=== PATIENT | female | born 1965 | race Caucasian/White ===

== ENCOUNTER 2016-12-20 06:04 | Inpatient (IN) | payer MEDICAID ==
[2016-12-20] MEDS ORDERED: 0.9 % SODIUM CHLORIDE 1,000 ML BAG IV ONE ×2 (06:24→07:14)
[2016-12-20] MEDS ORDERED: ONDANSETRON HCL IV 4 MG/2 ML VIAL IVP ONE (06:24)
[2016-12-20] MEDS ORDERED: IPRATROPIUM/ALBUTEROL (0.5MG/3MG) NEB INH ONE (06:25)
--- NOTE | 2016-12-20 06:26 | Emergency Department Record ---
History of Present Illness <Geremias Cabrales - Last Filed: 12/20/16 08:02> - General Source: Patient Mode of Arrival: Ambulatory Limitations: No limitations - History of Present Illness Initial comments: 51 yo female presents with two weeks of not feeling well. Her symptoms started with coughing. The could has been productive with clear sputum. No fevers but she does feel short of breath. NO chest pain. She is not a smoker. The last 4 days she developed a significant amount of diarrhea. She has associated nausea without vomiting. She has upper abdominal pain. No blood in the diarrhea. No dysuria but she states her urine is foul smelling. No recent antibiotics. She has history of prior . PCP is Dr Flores in [place]. She has a history of HTN, single kidney, hyperthyroid MD complaint: Diarrhea, Nausea, Vomiting, Other (Cough) -: Days(s) (4 days of diarrhea) Description of Vomiting: Watery Description of Diarrhea: Water Location: Epigastric Radiation: None Severity: Moderate Quality: Cramping Consistency: Constant Improves with: None Worsens with: Eating Associated Symptoms: Cough, Loss of appetite, Malaise, Nausea/vomiting <JASMEET NATH - Last Filed: 12/22/16 07:13> - General Chief complaint: Cough Stated complaint: COUGH/SOB/DIARRHEA Time Seen by Provider: 12/20/16 06:19 - Related Data Home Medications Medication Instructions Recorded Confirmed Last Taken Amitriptyline HCl 25 mg PO DAILY 12/20/16 12/20/16 Unknown Latanoprost 0.005% Opth Marika 1 drop AFFEYE BID 12/20/16 12/20/16 Unknown [Xalatan] Meloxicam 15 mg PO DAILY 12/20/16 12/20/16 Unknown Previous Rx's Medication Instructions Recorded Acetaminophen [Tylenol 500Mg Tab] 500 mg PO Q6H PRN 12/21/16 Albuterol Sulfate [Proair Hfa] 1 - 2 puff IH .EVERY 4-6 HOURS PRN 12/21/16 #1 inhaler Azithromycin 250 mg PO DAILY #3 tablet 12/21/16 Thyroid,Pork [[place] Thyroid] 45 mg PO DAILY #45 tab 12/21/16 Allergies Allergy/AdvReac Type Severity Reaction Status Date / Time No Known Drug Allergies Allergy Verified 03/09/15 13:58 Review of Systems Constitutional: Reports: Malaise, Weakness. Denies: Chills, Fever Eyes: Denies: Eye discharge, Eye pain, Photophobia ENT: Reports: Throat pain. Denies: Congestion Respiratory: Reports: Cough, Dyspnea. Denies: Hemoptysis Cardiovascular: Denies: Chest pain, Palpitations, Syncope Endocrine: Reports: Fatigue. Denies: Polydipsia, Polyuria Gastrointestinal: Reports: Abdominal pain, Diarrhea, Nausea Genitourinary: Denies: Dysuria, Urgency Musculoskeletal: Denies: Arthralgia, Back pain, Myalgia, Neck pain Skin: Denies: Bruising, Change in color, Rash Neurological: Denies: Confusion, Headache, Weakness Psychiatric: Denies: Anxiety Hematological/Lymphatic: Denies: Blood Clots, Easy bleeding, Easy bruising, Swollen glands <JASMEET NATH - Last Filed: 12/22/16 07:13> Past Medical History - SOCIAL HISTORY Smoking Status: Never smoker - RESPIRATORY Hx Respiratory Disorders: No - CARDIOVASCULAR Hx Cardio Disorders: Yes Hx Hypertension: Yes - NEURO Hx Neuro Disorders: No - GI Hx GI Disorders: No - Hx Genitourinary Disorders: Yes Hx Kidney Stones: Yes Hx Renal Disease: Yes (Pt states that "i only haveone kidney") Hx UTI: Yes - ENDOCRINE Hx Endocrine Disorders: Yes Hx Thyroid Disease: Yes (Hypothyroid) - MUSCULOSKELETAL Hx Musculoskeletal Disorders: No - PSYCH Hx Psych Problems: Yes Hx Anxiety: Yes Hx Behavior Problems: Yes (Bipolar) Hx Depression: Yes - HEMATOLOGY/ONCOLOGY Hx Hematology/Oncology Disorders: No <JASMEET NATH - Last Filed: 12/22/16 07:13> Family Medical History Hx Anxiety: Mother Hx Cancer: Father Hx Dementia: Mother Hx Depression: Mother Hx Diabetes: Mother Hx Heart Disease: Mother Hx HTN: Mother Hx Resp Disorders: Father Hx Seizures: Father Hx Stroke: Mother <JASMEET NATH - Last Filed: 12/22/16 07:13> Physical Exam - General General Appearance: Alert, Oriented x3, Cooperative, No acute distress Limitations: No limitations - Head Head exam: Atraumatic, Normocephalic, Normal inspection - Eye Eye exam: Normal appearance, PERRL. negative: Conjunctival injection, Periorbital swelling, Scleral icterus - ENT ENT exam: Normal exam, Mucous membranes dry, Normal orophraynx Ear exam: Normal external inspection Nasal Exam: Normal inspection Mouth exam: Normal external inspection - Neck Neck exam: Normal inspection. negative: Lymphadenopathy - Respiratory Respiratory exam: Decreased breath sounds, Rhonchi, Wheezes. negative: Normal lung sounds bilaterally, Chest wall tenderness, Prolonged expiratory, Respiratory distress - Cardiovascular Cardiovascular Exam: Normal rhythm, Normal heart sounds, Tachycardia. negative : Regular rate Peripheral Pulses: 2+: Radial (R), Radial (L) - GI/Abdominal GI/Abdominal exam: Soft, Tenderness (mildly tender in the epigastric area). negative: Distended, Guarding, Rebound, Rigid - Rectal Rectal exam: Deferred - exam: Deferred - Extremities Extremities exam: Normal inspection, Full ROM, Normal capillary refill. negative: Tenderness - Back Back exam: Reports: Normal inspection, Full ROM. Denies: CVA tenderness (R), CVA tenderness (L), Muscle spasm, Rash noted, Tenderness - Neurological Neurological exam: Alert, Normal gait, Oriented X3 - Psychiatric Psychiatric exam: Normal affect, Normal mood - Skin Skin exam: Dry, Intact, Normal color, Warm <JASMEET NATH - Last Filed: 12/22/16 07:13> Course Vital Signs 12/20/16 12/20/16 06:10 06:28 Temperature 97.8 F Pulse Rate 112 H Pulse Rate [ 134 H Pulse Ox Probe] Respiratory 26 H 16 Rate Blood Pressure 124/55 [Left Arm] Pulse Ox 94 L - Reevaluation(s) Reevaluation #3: The patient is doing better at this time and is resting comfortably. On exam her lungs do have improved aeration with no wheezes presently. 12/20/16 07:45 Reevaluation #4: The patient is doing better but her HR does jump to 120 with any movement or coughing. I did explain to her that it does appear she most likely does have a LLL infiltrate on xray. She also is significantly dehydrated with an elevated BUN and CR and a low HCO3. Due to those facts I did recommend hospital admission and the patient agreed. I then did contact Domonique (PATIENT ACCOUNT REPRESENTATIVE) and she did accept the admission for Dr. Streeter. 12/20/16 08:02 <Geremias Cabrales - Last Filed: 12/20/16 08:02> Vital Signs 12/20/16 06:10 Temperature 97.8 F Pulse Rate [ 134 H Pulse Ox Probe] Respiratory 26 H Rate Blood Pressure 124/55 [Left Arm] Pulse Ox 94 L - Reevaluation(s) Reevaluation #1: The CXR was reviewed Prelim read is atelectasis vs small infiltrate in the left base 12/20/16 06:52 Reevaluation #2: CBC reviewed. WBC 18.5 CMP with CR of 1.1 and HCO3 of 17. GFR is 55 12/20/16 06:54 <JASMEET NATH - Last Filed: 12/22/16 07:13> Medical Decision Making - Data Complexity MDM Data: Labs Ordered and/or Reviewed - Lab Data Result diagrams: 12/20/16 06:20 12/20/16 06:20 Lab Results 12/20/16 12/20/16 12/20/16 Range/Units 06:20 06:20 06:35 WBC 18.5 H (4.2-12.2) K/uL RBC 5.42 H (3.80-5.40) M/uL Hgb 16.0 (11.6-16.0) gm/dl Hct 48.0 H (35.0-47.0) % MCV 88.6 (81-97) fl MCH 29.5 (27-33) pg MCHC 33.3 (32-36) g/dl RDW 13.6 (11.5-14.5) % Plt Count 529 H (130-400) K/uL MPV 10.2 (7.4-10.4) fl Neutrophils % 62.0 (47-80) % Eosinophils % Not Reportable Basophils % Not Reportable Lymphocytes 23.0 (16-45) % Monocytes 13.0 H (0-9) % Platelet Estimate Normal (NORMAL) RBC Morphology Normal Eosinophil Count 2.0 (0-6) % Sodium 136 (136-145) mmol/L Potassium 3.9 (3.4-4.5) mmol/L Chloride 105 (98-107) mmol/L Carbon Dioxide 17.0 L (22-29) mmol/L Anion Gap 14.0 (7-16) BUN 59.2 H (12.6-42.6) mg/dL Creatinine 1.1 H (0.5-0.9) mg/dL Estimated GFR 55 mL/min Random Glucose 151 H (74-109) mg/dL Calcium 8.6 (8.6-10.0) mg/dL Total Bilirubin 0.30 (0.2-1.0) mg/dL AST 21 (10.0-35.0) U/L ALT 25 (<33) U/L Alkaline Phosphatase 75 (35-104) U/L Total Protein 7.0 (6.6-8.7) g/dL Albumin 3.6 L (4.0-5.0) g/dL Globulin 3.4 (1.4-4.8) gm/dL Albumin/Globulin Ratio 1.1 (1.1-1.8) Lipase 14 (13-60) U/L Urine Color Urine Appearance Urine pH (5.0-8.0) Ur Specific [place] (1.002-1.030) Urine Protein (NEGATIVE) Urine Glucose (UA) (NEGATIVE) Urine Ketones (NEGATIVE) Urine Blood (NEGATIVE) Urine Nitrite (NEGATIVE) Urine Bilirubin (NEGATIVE) Urine Urobilinogen (0.20 - 1.00) E.U./dL Ur Leukocyte Esterase (NEGATIVE) Influenza Type A Ag Negative (NEGATIVE) Influenza Type B Ag Negative (NEGATIVE) 12/20/16 Range/Units 06:55 WBC (4.2-12.2) K/uL RBC (3.80-5.40) M/uL Hgb (11.6-16.0) gm/dl Hct (35.0-47.0) % MCV (81-97) fl MCH (27-33) pg MCHC (32-36) g/dl RDW (11.5-14.5) % Plt Count (130-400) K/uL MPV (7.4-10.4) fl Neutrophils % (47-80) % Eosinophils % Basophils % Lymphocytes (16-45) % Monocytes (0-9) % Platelet Estimate (NORMAL) RBC Morphology Eosinophil Count (0-6) % Sodium (136-145) mmol/L Potassium (3.4-4.5) mmol/L Chloride (98-107) mmol/L Carbon Dioxide (22-29) mmol/L Anion Gap (7-16) BUN (12.6-42.6) mg/dL Creatinine (0.5-0.9) mg/dL Estimated GFR mL/min Random Glucose (74-109) mg/dL Calcium (8.6-10.0) mg/dL Total Bilirubin (0.2-1.0) mg/dL AST (10.0-35.0) U/L ALT (<33) U/L Alkaline Phosphatase (35-104) U/L Total Protein (6.6-8.7) g/dL Albumin (4.0-5.0) g/dL Globulin (1.4-4.8) gm/dL Albumin/Globulin Ratio (1.1-1.8) Lipase (13-60) U/L Urine Color Yellow Urine Appearance Clear Urine pH 6.0 (5.0-8.0) Ur Specific [place] >= 1.030 (1.002-1.030) Urine Protein 30 mg/dl H (NEGATIVE) Urine Glucose (UA) Negative (NEGATIVE) Urine Ketones Negative (NEGATIVE) Urine Blood Negative (NEGATIVE) Urine Nitrite Negative (NEGATIVE) Urine Bilirubin Negative (NEGATIVE) Urine Urobilinogen 0.2 (0.20 - 1.00) E.U./dL Ur Leukocyte Esterase Negative (NEGATIVE) Influenza Type A Ag (NEGATIVE) Influenza Type B Ag (NEGATIVE) <Geremias Cabrales - Last Filed: 12/20/16 08:02> - Lab Data Result diagrams: 12/21/16 06:19 12/21/16 06:19 <JASMEET NATH - Last Filed: 12/22/16 07:13> Disposition Disposition: Admit Decision to Admit: Admit from ER Decision to Admit Date: 12/20/16 Decision to Admit Time: 08:05 Accepting Physician: Syl Time Discussed w/Accepting Physician: 08:05 Time of Disposition: 08:05 <Geremias Cabrales - Last Filed: 12/20/16 08:02> <JASMEET NATH - Last Filed: 12/22/16 07:13> Clinical Impression: Pneumonia Qualifiers: Pneumonia type: due to unspecified organism Laterality: left Lung location: unspecified part of lung Qualified Code(s): J18.9 - Pneumonia, unspecified organism Disposition: Still a Patient at [facility] Condition: (2) Stable Quality - Blood Pressure Screening Does Patient Have Any of the Following: No Blood Pressure Classification: Normal BP Reading Systolic Measurement: 114 Diastolic Measurement: 74 Screening for High Blood Pressure: < Normal BP, F/U Not Required > [G8783] <Geremias Cabrales - Last Filed: 12/20/16 08:02> - Quality Measures Quality Measures: N/A - Blood Pressure Screening Does Patient Have Any of the Following: No Blood Pressure Classification: Pre-Hypertensive BP Reading Systolic Measurement: 120 Diastolic Measurement: 71 Screening for High Blood Pressure: < Pre-Hypertensive BP, F/U Documented > [ G8950] Pre-Hypertensive Follow-up Interventions: Referral to alternative/primary care provider. <JASMEET NATH - Last Filed: 12/22/16 07:13>
[2016-12-20 06:33] LABS: MEAN CELL VOLUME 88.6 fl (81-97); MEAN CORPUSCULAR HEMOGLOBIN 29.5 pg (27-33); MEAN CORPUSCULAR HGB CONC 33.3 g/dl (32-36); MEAN PLATELET VOLUME 10.2 fl (7.4-10.4); PLATELET COUNT 529 K/uL (130-400); RED BLOOD COUNT 5.42 M/uL (3.80-5.40); RED CELL DISTRIBUTION WIDTH 13.6 % (11.5-14.5); WHITE BLOOD COUNT W/O DIFF 18.5 K/uL (4.2-12.2)
[2016-12-20 06:46] LABS: PLATELET ESTIMATE NORMAL (NORMAL)
[2016-12-20 06:50] LABS: ALB/GLOB RATIO 1.1 (1.1-1.8); ALBUMIN 3.6 g/dL (4.0-5.0); BILIRUBIN,TOTAL 0.3 mg/dL (0.2-1.0); BLOOD UREA NITROGEN 59.2 mg/dL (12.6-42.6); CREATININE 1.1 mg/dL (0.5-0.9)
[2016-12-20 06:52] LABS: INFLUENZA A NEGATIVE (NEGATIVE); INFLUENZA B NEGATIVE (NEGATIVE)
[2016-12-20 07:00] LABS: URINE APPEARANCE CLEAR; URINE BILIRUBIN NEGATIVE (NEGATIVE); URINE BLOOD NEGATIVE (NEGATIVE); URINE COLOR YELLOW; URINE GLUCOSE (UA) NEGATIVE (NEGATIVE); URINE KETONE NEGATIVE (NEGATIVE); URINE LEUKOCYTE ESTERASE NEGATIVE (NEGATIVE); URINE NITRITE NEGATIVE (NEGATIVE); URINE UROBILINOGEN 0.2 E.U./dL (0.20 - 1.00)
[2016-12-20] MEDS ORDERED: CEFTRIAXONE SODIUM 1 GM in 0.9 % SODIUM CHLORIDE 100ML 100 ML IVPB ONE (07:43)
[2016-12-20] MEDS ORDERED: AZITHROMYCIN 500 MG TABLET PO ONE (07:43)
[2016-12-20] MEDS ORDERED: AZITHROMYCIN 500 MG in 0.9 % SODIUM CHLORIDE 250ML 250 ML IVPB ONE (07:50)
[2016-12-20] MEDS ORDERED: LOPERAMIDE 2 MG CAPSULE PO ONE (08:08)
[2016-12-20] MEDS: 0.9 % SODIUM CHLORIDE 1000ML 1,000 ML IV PRN (08:30)
[2016-12-20] MEDS ORDERED: IPRATROPIUM/ALBUTEROL (0.5MG/3MG) NEB INH PRN (08:52)
[2016-12-20] MEDS ORDERED: ACETAMINOPHEN 500 MG TABLET PO PRN (08:52)
--- NOTE | 2016-12-20 09:31 | History & Physical ---
History of Present Illness - Date of Service Date of Service for History & Physical: 12/20/16 - History of Present Illness Admitting Diagnosis: 1. Left Lower Lobe Pneumonia with Dehydration. History of Present Illness: 51 y/o female with CC cough and shortness of breath admitted for dehydration and LLL pneumonia. Past medical history includes HTN, single kidney, hypothyroidism, anxiety, bipolar disorder. Prior to arrival had been ill for the past 2 weeks with cough and clear sputum. Denies fevers or chest pain but does report shortness of breath. For the past 4 days developed significant diarrhea without nausea of vomiting with associated upper abdominal pain. Denies bloody diarrhea, dysuria, or recent antibiotic use. Was never a smoker. In the past worked in a [employer] plant x 15 years and has been exposed to second hand smoke in the past. While in the ED was afebrile, tachycardic at 134 with improvement after 2L NS. SPO2 92% RA. Otherwise VSS stable. WBC 18.5, Cr 1.1 with GRF 55, serum bicarb 17. Influenza negative. Liver enzymes normal. U/A specific gravity > 1.030, otherwise negative for infection. Rocephin 1gm, Azithromycin 500mg initiated in the ED. Mild improvement after DuoNeb. Continued with tachycardia with activity. Admitted for IV antibiotics, IV hydration. 12/20/16- resting in bed comfortably, no ILA or shortness of breath at rest. Nursing reports tachycardia with activity. Patient reports shortness of breath with activity has improved since arrival. Has remained afebrile. Is tolerating PO intake. Diarrhea has improved with immodium use. Cough is productive with yellow sputum. PCP: Dr Flores in [place] Travel Screening - Travel/Exposure Within Last 30 Days Have you traveled within the last 30 days?: No Location Detail:: [place] - Travel/Exposure Within Last Year Have you traveled outside the [place] in the last year?: No - Additonal Travel Details Have you been exposed to anyone with a communicable illness?: No - Travel Symptoms Symptom Screening: Diarrhea, Stomach Pain Review of Systems Constitutional: Reports: Malaise, Weakness. Denies: Chills, Fever Eyes: Denies: Eye discharge, Eye pain, Photophobia ENT: Reports: Throat pain. Denies: Congestion Respiratory: Reports: Cough, Dyspnea. Denies: Hemoptysis Cardiovascular: Denies: Chest pain, Palpitations, Syncope Endocrine: Reports: Fatigue. Denies: Polydipsia, Polyuria Gastrointestinal: Reports: Abdominal pain, Diarrhea, Nausea Genitourinary: Denies: Dysuria, Urgency Musculoskeletal: Denies: Arthralgia, Back pain, Myalgia, Neck pain Skin: Denies: Bruising, Change in color, Rash Neurological: Denies: Confusion, Headache, Weakness Psychiatric: Denies: Anxiety Hematological/Lymphatic: Denies: Blood Clots, Easy bleeding, Easy bruising, Swollen glands Past Medical History - SOCIAL HISTORY Smoking Status: Never smoker Alcohol Use: Rare Drug Use: None - RESPIRATORY Hx Respiratory Disorders: No - CARDIOVASCULAR Hx Cardio Disorders: Yes Hx Hypertension: Yes - NEURO Hx Neuro Disorders: No - GI Hx GI Disorders: No - Hx Genitourinary Disorders: Yes Hx Kidney Stones: Yes Hx Renal Disease: Yes (Pt states that "i only haveone kidney") Hx UTI: Yes - ENDOCRINE Hx Endocrine Disorders: Yes Hx Thyroid Disease: Yes (Hypothyroid) - MUSCULOSKELETAL Hx Musculoskeletal Disorders: No - PSYCH Hx Psych Problems: Yes Hx Anxiety: Yes Hx Behavior Problems: Yes (Bipolar) Hx Depression: Yes - HEMATOLOGY/ONCOLOGY Hx Hematology/Oncology Disorders: No Family Medical History Any Significant Family History?: Yes Hx Anxiety: Mother Hx Cancer: Father Hx Dementia: Mother Hx Depression: Mother Hx Diabetes: Mother Hx Heart Disease: Mother Hx HTN: Mother Hx Resp Disorders: Father Hx Seizures: Father Hx Stroke: Mother H&P Meds/Allergies - Allergies Allergies: Allergies Allergy/AdvReac Type Severity Reaction Status Date / Time No Known Drug Allergies Allergy Verified 03/09/15 13:58 - Home Medications Home Medications Medication Instructions Recorded Confirmed Last Taken Amitriptyline HCl [Amitriptyline 25 mg PO DAILY 12/20/16 12/20/16 Unknown HCl] Latanoprost 0.005% Opth Marika 1 drop AFFEYE BID 12/20/16 12/20/16 Unknown [Xalatan] Meloxicam [Meloxicam] 15 mg PO DAILY 12/20/16 12/20/16 Unknown Thyroid,Pork [[place] Thyroid] 30 mg PO DAILY 12/20/16 12/20/16 Unknown - Active Medications Active Medications: Current Medications Acetaminophen (Tylenol 500mg Tab) 500 mg PO Q6H PRN PRN Reason: PAIN/TEMP Albuterol/Ipratropium (Duoneb) 3 ml INH RESP.Q4H PRN PRN Reason: Wheezing Amitriptyline HCl (Elavil) 25 mg PO DAILY [facility] Azithromycin 500 mg/ Sodium (Chloride) 250 mls @ 250 mls/hr IVPB Q24H [facility]ERNA[place] Stop: 12/26/16 08:16 Ceftriaxone Sodium 1 gm/ (Sodium Chloride) 100 mls @ 100 mls/hr IVPB BID [facility]ERNA[facility] Stop: 12/25/16 10:01 Sodium Chloride () 1,000 mls @ 150 mls/hr IV .Q6H40M PRN PRN Reason: LARGE VOLUME IV Non-Formulary Medication (Buspirone Hcl [Buspirone Hcl]) 10 mg PO DAILY [facility] Non-Formulary Medication (Latanoprost 0.005% Opth Marika [Xalatan]) 1 drop AFFEYE BID [facility] Non-Formulary Medication (Losartan Potassium [Losartan Potassium]) 50 mg PO DAILY [facility] Non-Formulary Medication (Thyroid,Pork [[place] Thyroid]) 30 mg PO DAILY [facility] Sertraline HCl (Zoloft) 50 mg PO DAILY [facility] Physical Exam - Vital Signs Vital Signs: Vital Signs - Last 24 Hrs Temp Pulse Pulse Resp BP BP Pulse Ox 12/20/16 09:00 97.8 F 109 H 18 142/94 97 12/20/16 08:55 95 H 18 133/81 98 - General General Appearance: Alert, Oriented x3, Cooperative, No acute distress Limitations: No limitations - Head Head exam: Atraumatic, Normocephalic, Normal inspection - Eye Eye exam: Normal appearance, PERRL. negative: Conjunctival injection, Periorbital swelling, Scleral icterus - ENT ENT exam: Normal exam, Mucous membranes dry, Normal orophraynx Ear exam: Normal external inspection Nasal Exam: Normal inspection Mouth exam: Normal external inspection - Neck Neck exam: Normal inspection. negative: Lymphadenopathy - Respiratory Respiratory exam: Decreased breath sounds. negative: Normal lung sounds bilaterally, Chest wall tenderness, Prolonged expiratory, Respiratory distress, Rhonchi, Wheezes - Cardiovascular Cardiovascular Exam: Normal rhythm, Normal heart sounds, Tachycardia. negative : Regular rate Peripheral Pulses: 2+: Radial (R), Radial (L), Dorsalis Pedis (R), Dorsalis Pedis (L) - GI/Abdominal GI/Abdominal exam: Soft, Tenderness (mildly tender in the epigastric area). negative: Distended, Guarding, Rebound, Rigid - Rectal Rectal exam: Deferred - exam: Deferred - Extremities Extremities exam: Normal inspection, Full ROM, Normal capillary refill. negative: Tenderness - Back Back exam: Reports: Normal inspection, Full ROM. Denies: CVA tenderness (R), CVA tenderness (L), Muscle spasm, Rash noted, Tenderness - Neurological Neurological exam: Alert, Normal gait, Oriented X3 - Psychiatric Psychiatric exam: Normal affect, Normal mood - Skin Skin exam: Dry, Intact, Normal color, Warm Results - Labs Result Diagrams: 12/20/16 06:20 12/20/16 06:20 - Imaging and Cardiology Chest x-ray Status: Report reviewed (LLL infiltrate) VTE H&P Assessment - Risk for VTE Risk for VTE: Yes Risk Level: Low Risk Assessment Date: 12/20/16 Risk Assessment Time: 09:32 VTE Orders Placed or Will Be Placed: Yes Plan - Detailed Diagnosis and Plan (1) Pneumonia Current Visit: Yes Status: Acute Qualifiers: Pneumonia type: due to unspecified organism Laterality: left Lung location: unspecified part of lung Qualified Code(s): J18.9 - Pneumonia, unspecified organism Base Code: J18.9 - PNEUMONIA, UNSPECIFIED ORGANISM Comment: 12/20/16 - Rocephin 1gm BID, Azithromycin 500mg QD - O2 @ 2L to keep SPO@> 90% - DuoNeb Q 4 hr PRN - CBC, CMP in am - pneumovac to be given prior to discharge - telemetry- sinus tachy with activity improved since arrival to ED - if tachycardia does not improve will consider CTA chest although low clinical probability as tachycardia has improved after initiation of tx for pneumonia, is not a smoker, does not live a sedentary lifestyle (2) Tachycardia Current Visit: Yes Status: Acute Base Code: R00.0 - TACHYCARDIA, UNSPECIFIED Comment: 12/20/16 - likely related to pumonary process and mild dehydration - telemetry - IV hydration - TSH today (3) DVT prophylaxis Current Visit: Yes Status: Acute Base Code: [id number] - Comment: 12/20/16- nursing to encourage frequent ambulation (4) Full code status Current Visit: Yes Status: Acute Base Code: Z78.9 - OTHER SPECIFIED HEALTH STATUS Comment: 12/20/16- will remain full code during this hospitalization
[2016-12-20] MEDS ORDERED: Non-Formulary MISC (Losartan Potassium [Losartan Potassium] 50 MG) PO SCH (10:00)
[2016-12-20] MEDS ORDERED: BUSPIRONE HCL 10 MG PO SCH (10:00)
[2016-12-20] MEDS: AMITRIPTYLINE 25 MG TABLET PO SCH (10:00)
[2016-12-20] MEDS ORDERED: ARMOUR THYROID 30 MG PO SCH (10:30)
[2016-12-20] MEDS: LOSARTAN POTASSIUM 25 MG TABLET PO SCH (11:09)
[2016-12-20] MEDS: BUSPIRONE 5 MG TABLET PO SCH (11:09)
[2016-12-20] MEDS: CEFTRIAXONE SODIUM 1 GM in 0.9 % SODIUM CHLORIDE 100ML 100 ML IVPB SCH ×2 (11:11→21:52)
[2016-12-20] MEDS ORDERED: PNEUM 13-VAL/PF 0.5 ML IM ONE (12:00)
[2016-12-20] MEDS: SERTRALINE HCL 50 MG TABLET PO SCH (12:12)
[2016-12-20] MEDS ORDERED: [UNRECOGNIZED DRUG - OTHER] AFFEYE SCH (22:00)
[2016-12-20] MEDS ORDERED: OPTH AFFEYE SCH (22:00)
[2016-12-21] MEDS: 0.9 % SODIUM CHLORIDE 1000ML 1,000 ML IV PRN ×2 (01:41→09:52)
[2016-12-21 06:44] LABS: BASO % 0.7 % (0-6); EOS % 3.4 % (0-6); GRAN % 62.5 % (47-80); HEMATOCRIT 37.8 % (35.0-47.0); HEMOGLOBIN 12.6 gm/dl (11.6-16.0); LYMPH % 22.5 % (16-45); MEAN CELL VOLUME 93.1 fl (81-97); MEAN CORPUSCULAR HGB CONC 33.3 g/dl (32-36); MEAN PLATELET VOLUME 10.4 fl (7.4-10.4); MONO % 10.9 % (0-9); PLATELET COUNT 324 K/uL (130-400); RED BLOOD COUNT 4.06 M/uL (3.80-5.40); RED CELL DISTRIBUTION WIDTH 13.8 % (11.5-14.5); WHITE BLOOD COUNT W/O DIFF 10.4 K/uL (4.2-12.2)
[2016-12-21 07:13] LABS: ALB/GLOB RATIO 1.1 (1.1-1.8); ALBUMIN 2.6 g/dL (4.0-5.0); ALKALINE PHOSPHATASE 56 U/L (35-104); ALT/SGPT 28 U/L (<33); AST/SGOT 29 U/L (10.0-35.0); BLOOD UREA NITROGEN 36.8 mg/dL (12.6-42.6); CREATININE 0.7 mg/dL (0.5-0.9); EST GLOMERULAR FILTRATION RATE > 60 mL/min; GLUCOSE,RANDOM 118 mg/dL (74-109); TOTAL PROTEIN 4.9 g/dL (6.6-8.7)
--- NOTE | 2016-12-21 07:26 | RADIOLOGY REPORT ---
EXAM: CHEST , TWO VIEWS HISTORY: PATIENT HAS CONGESTION AND COUGH TIMES TWO WEEKS. TECHNIQUE: Two views of the chest are provided without comparison examinations. FINDINGS: The cardiomediastinal silhouette is within normal limits for size and contour. The tom appear unremarkable. Within the left lingular lobe, there are findings suspicious for a focal infiltrate and/or subsegmental atelectasis. No pleural effusions are identified. No pneumothorax is noted. IMPRESSION: FOCAL INFILTRATE AND/OR SUBSEGMENTAL ATELECTASIS IS SUSPECTED WITHIN THE LEFT LINGULAR LOBE. FOLLOW-UP PA AND LATERAL VIEWS OF THE CHEST CAN BE OBTAINED UNTIL RESOLUTION OF FINDINGS. JOB NUMBER: [id number] MTDD
[2016-12-21] MEDS ORDERED: AZITHROMYCIN 500 MG in 0.9 % SODIUM CHLORIDE 250ML 250 ML IVPB SCH (08:15)
[2016-12-21] MEDS ORDERED: ARMOUR THYROID 30 MG PO SCH (09:40)
[2016-12-21] MEDS: CEFTRIAXONE SODIUM 1 GM in 0.9 % SODIUM CHLORIDE 100ML 100 ML IVPB SCH (09:59)
[2016-12-21] MEDS: AMITRIPTYLINE 25 MG TABLET PO SCH (10:00)
[2016-12-21] MEDS: LOSARTAN POTASSIUM 25 MG TABLET PO SCH (10:00)
[2016-12-21] MEDS: BUSPIRONE 5 MG TABLET PO SCH (10:00)
[2016-12-21] MEDS: SERTRALINE HCL 50 MG TABLET PO SCH (10:00)
--- NOTE | 2016-12-21 11:37 | Discharge Summary ---
Providers Discharge Summary Date: 12/21/16 Date of admission: 12/20/16 08:46 Expected Date of Discharge: 12/21/16 Attending physician: MARKELL MÁRQUEZ Physical Exam - Vital Signs Vital Signs: Vital Signs - Last 24 Hrs Temp Pulse Pulse Resp BP BP Pulse Ox 12/21/16 09:08 98.5 F 120/71 12/21/16 09:00 98.3 F 105 H 18 130/76 94 L 12/21/16 01:44 98.5 F 102 H 16 120/71 95 12/20/16 21:50 118 H 95 12/20/16 21:00 110 H 20 12/20/16 17:00 98.0 F 110 H 134/75 97 - General General Appearance: Alert, Oriented x3, Cooperative, No acute distress Limitations: No limitations - Head Head exam: Atraumatic, Normocephalic, Normal inspection - Eye Eye exam: Normal appearance, PERRL. negative: Conjunctival injection, Periorbital swelling, Scleral icterus - ENT ENT exam: Normal exam, Mucous membranes dry, Normal orophraynx Ear exam: Normal external inspection Nasal Exam: Normal inspection Mouth exam: Normal external inspection - Neck Neck exam: Normal inspection. negative: Lymphadenopathy - Respiratory Respiratory exam: Wheezes (rare scattered expiratory anteriorly). negative: Normal lung sounds bilaterally, Chest wall tenderness, Decreased breath sounds, Prolonged expiratory, Respiratory distress, Rhonchi - Cardiovascular Cardiovascular Exam: Normal rhythm, Normal heart sounds, Tachycardia. negative : Regular rate Peripheral Pulses: 2+: Radial (R), Radial (L), Dorsalis Pedis (R), Dorsalis Pedis (L) - GI/Abdominal GI/Abdominal exam: Soft. negative: Distended, Guarding, Rebound, Rigid, Tenderness - Rectal Rectal exam: Deferred - exam: Deferred - Extremities Extremities exam: Normal inspection, Full ROM, Normal capillary refill. negative: Tenderness - Back Back exam: Reports: Normal inspection, Full ROM. Denies: CVA tenderness (R), CVA tenderness (L), Muscle spasm, Rash noted, Tenderness - Neurological Neurological exam: Alert, Normal gait, Oriented X3 - Psychiatric Psychiatric exam: Normal affect, Normal mood - Skin Skin exam: Dry, Intact, Normal color, Warm Hospitalization - Hospitalization Admission Diagnosis: 1. Left Lower Lobe Pneumonia with Dehydration. - Problem List/Discharge Diagnosis (1) Pneumonia Current Visit: Yes Status: Acute Discharge Diagnosis: Pneumonia type: due to unspecified organism Laterality: left Lung location: unspecified part of lung Qualified Code(s): J18.9 - Pneumonia, unspecified organism Base Code: J18.9 - PNEUMONIA, UNSPECIFIED ORGANISM Comment: 12/21/16 - shortness of breath with ambulation resolved today - has not required oxygen use during hospitalization - WBC normalized - she has declined pneumovac - CTA of chest today for tachycardia- negative for PE - telemetry- sinus tachy with activity improved since arrival to ED, is asymptomatic today. Reports she has been told in the past she has a higher than normal heart rate but has never had to be worked up for it - Discharge home today - follow up with PCP in 1-2 weeks for recheck of tachycardia and adjustment of armour thyroid (2) Tachycardia Current Visit: Yes Status: Acute Base Code: R00.0 - TACHYCARDIA, UNSPECIFIED Comment: 12/20/16 - likely related to pumonary process and mild dehydration - telemetry- NSR with slight tachycardia, is asymptomatic - TSH 10.4, will increase armour thyroid to 45mg QD - follow up with PCP in 1-2 weeks (3) DVT prophylaxis Current Visit: Yes Status: Acute Base Code: [id number] - Comment: 12/21/16- nursing to encourage frequent ambulation (4) Full code status Current Visit: Yes Status: Acute Base Code: Z78.9 - OTHER SPECIFIED HEALTH STATUS Comment: 12/21/16- will remain full code during this hospitalization - Hospitalization Course Disposition: Home, Self-Care Hospital Course: 51 y/o female with CC cough and shortness of breath admitted for dehydration and LLL pneumonia. Past medical history includes HTN, single kidney, hypothyroidism, anxiety, bipolar disorder. Prior to arrival had been ill for the past 2 weeks with cough and clear sputum. Denies fevers or chest pain but does report shortness of breath. For the past 4 days developed significant diarrhea without nausea of vomiting with associated upper abdominal pain. Denies bloody diarrhea, dysuria, or recent antibiotic use. Was never a smoker. In the past worked in a [employer] x 15 years and has been exposed to second hand smoke in the past. While in the ED was afebrile, tachycardic at 134 with improvement after 2L NS. SPO2 92% RA. Otherwise VSS stable. WBC 18.5, Cr 1.1 with GRF 55, serum bicarb 17. Influenza negative. Liver enzymes normal. U/A specific gravity > 1.030, otherwise negative for infection. Rocephin 1gm, Azithromycin 500mg initiated in the ED. Mild improvement after DuoNeb. Continued with tachycardia with activity. Admitted for IV antibiotics, IV hydration. 12/20/16- resting in bed comfortably, no ILA or shortness of breath at rest. Nursing reports tachycardia with activity. Patient reports shortness of breath with activity has improved since arrival. Has remained afebrile. Is tolerating PO intake. Diarrhea has improved with immodium use. Cough is productive with yellow sputum. PCP: Dr Flores in [place] Procedures: Imaging and X-Rays 12/21/16 09:33 CHEST CTA w contrast [CTA] Stat Abnormal Labs: Abnormal Lab Results 12/21/16 12/21/16 Range/Units 06:19 06:19 Monocytes % 10.9 H (0-9) % Chloride 111 H (98-107) mmol/L Carbon Dioxide 18.0 L (22-29) mmol/L Random Glucose 118 H (74-109) mg/dL Calcium 7.3 L (8.6-10.0) mg/dL Total Protein 4.9 L (6.6-8.7) g/dL Albumin 2.6 L (4.0-5.0) g/dL Condition at Discharge: (2) Stable Discharge Medications - Discharge Medications Prescriptions: Albuterol Sulfate [Proair Hfa] 1 - 2 puff IH .EVERY 4-6 HOURS PRN #1 inhaler PRN Reason: Difficulty In Breathing Azithromycin 250 mg PO DAILY #3 tablet Home Medications: Ambulatory Orders Buspirone HCl 10 mg PO DAILY 03/09/15 [Last Taken 03/09/15] Losartan Potassium 50 mg PO DAILY 03/09/15 [Last Taken 03/09/15] Sertraline HCl 50 mg PO DAILY 03/09/15 [Last Taken 03/09/15] Amitriptyline HCl 25 mg PO DAILY 12/20/16 [Last Taken Unknown] Latanoprost 0.005% Opth Marika [Xalatan] 1 drop AFFEYE BID 12/20/16 [Last Taken Unknown] Meloxicam 15 mg PO DAILY 12/20/16 [Last Taken Unknown] Acetaminophen [Tylenol 500Mg Tab] 500 mg PO Q6H PRN 12/21/16 [Last Taken Unknown ] Albuterol Sulfate [Proair Hfa] 1 - 2 puff IH .EVERY 4-6 HOURS PRN #1 inhaler [Last Taken Unknown] Azithromycin 250 mg PO DAILY #3 tablet 12/21/16 [Last Taken Unknown] Thyroid,Pork [Clifford Thyroid] 45 mg PO DAILY #45 tab 12/21/16 [Last Taken Unknown] Discharge Plan - Discharge Instructions Activity at Discharge: Increase Activity as Tolerated Diet at Discharge: Regular Diet Quality Measures - Quality Measures Quality Measures: Documentation of Current Medications in Medical Record, Screening for High Blood Pressure and F/U Documented - Current Medications Quality Measure: Measure #130: Documentation of Current Medications Documentation of Current Medications: <Current Medications Documented/Reviewed> [G8427] - Blood Pressure Screening Quality Measure: Screening for High Blood Pressure and Follow-Up Documented Does Patient Have Any of the Following: Active Dx of HTN Blood Pressure Classification: Pre-Hypertensive BP Reading Systolic Measurement: 120 Diastolic Measurement: 71 Screening for High Blood Pressure: Patient Exclusion, Hx of HTN [G9744] - Elder Abuse Suspicion Index EASI Reference Information: Pepito OSUNA, Damaso C, Anthony D, Bernardino M.Development and validation of a tool to assist physicians identification of elder abuse: The Elder Abuse Suspicion Index (EASI ). Journal of Elder Abuse and Neglect, 2008; 20 (3): 276-300.
--- NOTE | 2016-12-21 12:17 | CT ANGIOGRAM REPORT ---
EXAM: CTA OF THE CHEST WITH CONTRAST HISTORY: DIFFICULTY BREATHING. TECHNIQUE: CTA of the chest was performed after intravenous administration of 80 ml of Omnipaque 350 contrast material. Sagittal and coronal MIP images were performed on an independent workstation. FINDINGS: There is no mass or filling defect to suggest pulmonary embolism. The heart size is normal. No pericardial effusion. There is a consolidation in the left lower lobe. There is consolidation on the lingular segment. There is focal ground glass opacity in the posterior left lower lobe. There is fatty infiltration of the liver. IMPRESSION: 1. NO CTA FINDINGS SUGGESTIVE OF PULMONARY EMBOLISM. 2. CONSOLIDATION IN THE LINGULAR SEGMENT. FOCAL GROUND GLASS OPACITY IN THE LEFT LOWER LOBE. FINDINGS ARE LIKELY RELATED TO PNEUMONIA. JOB NUMBER: [id number] MTDD
[2016-12-22] MEDS ORDERED: AMITRIPTYLINE 25 MG TABLET PO SCH (22:00)
== END 2016-12-21 12:30 | disposition home or self-care (01) | DRG 195 ==
LOC: ER 06:04 → MEDSURG 08:46 → OBSVTOIN 08:46
PROVIDERS: ADMIT Family Medicine; ATTEND Family Medicine
DX: J18.9 Pneumonia, unspecified organism (principal); E86.0 Dehydration; I10 Essential (primary) hypertension; E03.9 Hypothyroidism, unspecified; F31.9 Bipolar disorder, unspecified
CPT/HCPCS: 71020; 71275; 80053; 81003; 83690; 84443; 85025; 85027; 87400; 94640; 94760; 94761; 96365; 96366; 96368; 96375; 99223; 99239; 99285; J0456; J2405; J7030; J7050

== ENCOUNTER 2017-10-10 08:23 | Emergency (ER) | payer MEDICAID ==
[2017-10-10] MEDS ORDERED: Diph,Pert(Acell),Tet Vac 0.5 ML SYR IM ONE (08:33)
[2017-10-10] MEDS ORDERED: CEPHALEXIN 500 MG CAPSULE PO STA (08:33)
[2017-10-10] MEDS ORDERED: POLYMYXIN B SULF/TRIMETHOPRIM 10ML BTL OPTH ONE (08:33)
--- NOTE | 2017-10-10 08:40 | Emergency Department Record ---
History of Present Illness - General Chief complaint: Eye Problem Stated complaint: EYE PAIN Time Seen by Provider: 10/10/17 08:26 Source: Patient Mode of Arrival: Ambulatory Limitations: No limitations - History of Present Illness Initial comments: 52 yo female presents with left medial lower lid tenderness and swelling for one day. She wears glasses. No contacts. No trauma. No drainage. No fever. She has mild left upper cheek redness. No vision changes. No pain with eye movement. No eye redness or tearing. She is not a diabetic. MD chief complaint: Eye pain (Left lower medial lid redness and swelling) -: Days(s) (1) Onset Description: Gradual Location: Left eye Place: Home If Injury: None Eye Symptoms: Other Severity: Moderate If Pain, Quality: Aching Consistency: Constant Context: Other (glasses) Associated Symptoms: None Treatments Prior to Arrival: None - Related Data Hx Tetanus Toxoid Vaccination: Yes Year of Tetanus Vaccination: unsure Previous Rx's Medication Instructions Recorded Acetaminophen [Tylenol 500Mg Tab] 500 mg PO Q6H PRN 12/21/16 Cephalexin [Keflex] 500 mg PO QID #28 cap 10/10/17 Allergies Allergy/AdvReac Type Severity Reaction Status Date / Time No Known Drug Allergies Allergy Verified 10/10/17 08:38 Review of Systems Constitutional: Denies: Chills, Fever, Malaise, Weakness Eyes: Reports: Eye pain (no eye pain, left lower lid pain). Denies: Eye discharge ENT: Denies: Congestion, Throat pain Respiratory: Denies: Cough Cardiovascular: Denies: Chest pain, Syncope Endocrine: Denies: Fatigue Gastrointestinal: Denies: Diarrhea, Nausea, Vomiting Genitourinary: Denies: Dysuria Musculoskeletal: Denies: Arthralgia, Back pain, Myalgia Skin: Denies: Bruising, Change in color, Rash Neurological: Denies: Headache, Numbness, Weakness Psychiatric: Denies: Anxiety Hematological/Lymphatic: Denies: Blood Clots, Easy bleeding, Easy bruising Past Medical History - SOCIAL HISTORY Smoking Status: Never smoker - RESPIRATORY Hx Respiratory Disorders: No - CARDIOVASCULAR Hx Cardio Disorders: Yes Hx Hypertension: Yes - NEURO Hx Neuro Disorders: No - GI Hx GI Disorders: No - Hx Genitourinary Disorders: Yes Hx Kidney Stones: Yes Hx Renal Disease: Yes (Pt states that "i only haveone kidney") Hx UTI: Yes - ENDOCRINE Hx Endocrine Disorders: Yes Hx Thyroid Disease: Yes (Hypothyroid) - MUSCULOSKELETAL Hx Musculoskeletal Disorders: No - PSYCH Hx Psych Problems: Yes Hx Anxiety: Yes Hx Behavior Problems: Yes (Bipolar) Hx Depression: Yes - HEMATOLOGY/ONCOLOGY Hx Hematology/Oncology Disorders: No Family Medical History Hx Anxiety: Mother Hx Cancer: Father Hx Dementia: Mother Hx Depression: Mother Hx Diabetes: Mother Hx Heart Disease: Mother Hx HTN: Mother Hx Resp Disorders: Father Hx Seizures: Father Hx Stroke: Mother Physical Exam - General General Appearance: Alert, Oriented x3, Cooperative, No acute distress Limitations: No limitations - Head Head exam: Atraumatic, Normal inspection - Eye Eye exam: PERRL, Periorbital swelling (medial left lower lid mild swelling, no pus, slight erythema just below the lower tear duct). negative: Conjunctival injection Image of Eyes: 1 - mild lower lid swelling, tenderness, no pus or drainage, mild faint erythema - ENT ENT exam: Normal exam, Mucous membranes moist, Normal orophraynx Ear exam: Normal external inspection Nasal Exam: Normal inspection Mouth exam: Normal external inspection - Neck Neck exam: Normal inspection - Respiratory Respiratory exam: Normal lung sounds bilaterally - Cardiovascular Cardiovascular Exam: Regular rate, Normal rhythm, Normal heart sounds - Rectal Rectal exam: Deferred - exam: Deferred - Neurological Neurological exam: Alert, Oriented X3 - Psychiatric Psychiatric exam: negative: Agitated, Anxious - Skin Skin exam: Erythema Course - Reevaluation(s) Reevaluation #1: 10/10/17 08:37 The examination is consistent with mild blepharitis or tear duct infection She was encouraged to do warm compresses, gentle lid cleaning Topical and oral antibiotics prescribed Tetanus updated since many years greater than 10 since prior We discussed at length reasons to immediately return to the ED as well as close follow up. The patient will call the PCP for close follow up of this ED visit to review this visit Disposition Disposition: Discharge Clinical Impression: Blepharitis of eyelid of left eye Qualifiers: Blepharitis type: ulcerative Eyelid: lower Qualified Code(s): H01.015 - Ulcerative blepharitis left lower eyelid Disposition: Home, Self-Care Condition: (1) Good Instructions: Blepharitis (ED) Additional Instructions: Return to ED if your symptoms worsen or if you have any new concerns. Take the prescriptions provided today as directed. Follow-up with your family doctor at the next available appointment. Warm compresses every 4-6 hours No make up on the eyelashes one week Prescriptions: Cephalexin [Keflex] 500 mg PO QID #28 cap Forms: Patient Portal Access Time of Disposition: 08:40 Quality - Quality Measures Quality Measures: N/A - Blood Pressure Screening Does Patient Have Any of the Following: Active Dx of HTN Blood Pressure Classification: Hypertensive Reading Systolic Measurement: 161 Diastolic Measurement: 103 Screening for High Blood Pressure: Patient Exclusion, Hx of HTN [G9744]
== END 2017-10-10 08:57 | disposition home or self-care (01) ==
LOC: ER 08:23
DX: H01.015 Ulcerative blepharitis left lower eyelid (principal); I10 Essential (primary) hypertension
CPT/HCPCS: 90715; 96372; 99282

== ENCOUNTER 2017-12-13 05:40 | Observation (INO) | payer MEDICAID ==
[2017-12-13] MEDS ORDERED: 0.9 % SODIUM CHLORIDE 1000ML 1,000 ML IV ONE (05:50)
[2017-12-13] MEDS ORDERED: CLINDAMYCIN 600MG/50ML PREMIX 600 MG/50 ML BAG IVPB ONE (05:50)
[2017-12-13] MEDS ORDERED: ACETAMINOPHEN 1,000 MG/100 ML BTL IVPB ONE (05:52)
--- NOTE | 2017-12-13 05:56 | Emergency Department Record ---
History of Present Illness - General Chief Complaint: Recheck - Other Stated Complaint: RECHECK (FACE ABSCESS) Time Seen by Provider: 12/13/17 05:49 Source: Patient Mode of arrival: Ambulatory Limitations: No limitations - History of Present Illness Initial Comments: 52 yo female presents to ED for evaluation of worsening facial swelling following initial evaluation 24 hours ago. Patient was prescribed Bactrim yesterday for her symptoms which have worsened. Patient denies fevers/chills, denies history of DM. Patient reports that her symptoms are beginning to track into the submandibular region. MD Complaint: Wound re-check Onset/Timin -: Days(s) Initial Visit For: Abscess Returns Today for: Persistent/worsening pain related to initial visit Symptoms Since Prior Visit: Worsening pain, Worsening redness Associated Symptoms: None Treatments Prior to Arrival: Given antibiotics on initial visit - Related Data Previous Rx's Medication Instructions Recorded Acetaminophen [Tylenol 500Mg Tab] 500 mg PO Q6H PRN 12/21/16 Sulfamethoxazole/Trimethoprim 1 each PO BID #20 tablet 12/12/17 [Bactrim Ds Tablet] Allergies Allergy/AdvReac Type Severity Reaction Status Date / Time No Known Drug Allergies Allergy Verified 10/10/17 08:38 Travel Screening - Travel/Exposure Within Last 30 Days Have you traveled within the last 30 days?: No Review of Systems Constitutional: Denies: Chills, Fever, Malaise, Night sweats Eyes: Denies: Eye discharge, Eye pain ENT: Reports: Other (facial swelling/pain). Denies: Congestion, Ear pain, Epistaxis Respiratory: Denies: Cough, Dyspnea Cardiovascular: Denies: Chest pain, Dyspnea on exertion Endocrine: Denies: Fatigue, Heat or cold intolerance Gastrointestinal: Denies: Abdominal pain, Nausea, Vomiting Genitourinary: Denies: Incontinence, Retention Musculoskeletal: Denies: Arthralgia, Back pain Skin: Denies: Bruising, Change in color Neurological: Denies: Abnormal gait, Confusion, Headache, Seizure Psychiatric: Denies: Anxiety Hematological/Lymphatic: Denies: Anemia, Blood Clots Past Medical History - SOCIAL HISTORY Smoking Status: Never smoker Alcohol Use: None Drug Use: None - RESPIRATORY Hx Respiratory Disorders: No - CARDIOVASCULAR Hx Cardio Disorders: Yes Hx Hypertension: Yes - NEURO Hx Neuro Disorders: No - GI Hx GI Disorders: No - Hx Genitourinary Disorders: Yes Hx Kidney Stones: Yes Hx Renal Disease: Yes (Pt states that "i only haveone kidney") Hx UTI: Yes - ENDOCRINE Hx Endocrine Disorders: Yes Hx Thyroid Disease: Yes (Hypothyroid) - MUSCULOSKELETAL Hx Musculoskeletal Disorders: No - PSYCH Hx Psych Problems: Yes Hx Anxiety: Yes Hx Behavior Problems: Yes (Bipolar) Hx Depression: Yes - HEMATOLOGY/ONCOLOGY Hx Hematology/Oncology Disorders: No Family Medical History Any Significant Family History?: Yes Hx Anxiety: Mother Hx Cancer: Father Hx Dementia: Mother Hx Depression: Mother Hx Diabetes: Mother Hx Heart Disease: Mother Hx HTN: Mother Hx Resp Disorders: Father Hx Seizures: Father Hx Stroke: Mother Physical Exam - General General Appearance: Alert, Oriented x3, Cooperative, Mild distress Limitations: No limitations - Head Head exam: Atraumatic Head exam detail: Other (Mild erythema and STS to the anterior chin region with induration present, mild STS to the submandibular region on examination.). negative: Abrasion, Contusion, Blandon's sign, General tenderness, Hematoma, Laceration - Eye Eye exam: Normal appearance. negative: Conjunctival injection, Periorbital swelling, Periorbital tenderness, Scleral icterus - ENT Ear exam: negative: Auricular hematoma, Auricular trauma Nasal Exam: negative: Active bleeding, Discharge, Dried blood, Foreign body Mouth exam: negative: Drooling, Laceration, Muffled voice, Tongue elevation - Neck Neck exam: Normal inspection. negative: Meningismus, Tenderness - Respiratory Respiratory exam: Normal lung sounds bilaterally. negative: Rales, Respiratory distress, Rhonchi, Stridor - Cardiovascular Cardiovascular Exam: Normal rhythm, Normal heart sounds, Tachycardia - GI/Abdominal GI/Abdominal exam: Soft. negative: Rebound, Rigid, Tenderness - Rectal Rectal exam: Deferred - exam: Deferred - Extremities Extremities exam: Normal inspection. negative: Calf tenderness, Pedal edema, Tenderness - Back Back exam: Denies: CVA tenderness (R), CVA tenderness (L) - Neurological Neurological exam: Alert, Normal gait, Oriented X3 - Psychiatric Psychiatric exam: Normal affect, Normal mood - Skin Skin exam: Erythema. negative: Abrasion Type of lesion: Abscess Distribution of rash: Face Description of rash: Erythematous, Indurated, Swelling, Tenderness Course Vital Signs 12/13/17 05:43 Temperature 99.0 F Pulse Rate 138 H Respiratory 20 Rate Blood Pressure 191/122 Pulse Ox 96 - Reevaluation(s) Reevaluation #1: 12/13/17 05:56 Patient was seen and examined. IV Clindamycin ordered to infuse, laboratory studies were ordered as well as CT imaging of the soft tissues of the chin and neck on examination. Reevaluation #2: 12/13/17 06:26 Laboratory studies were reviewed: WBC 10.4 with 82% Neutrophils (2% Bands). Labs are otherwise grossly unremarkable for an acute process 12/13/17 06:37 Patient is back from CT imaging, reports that she is pain-free following Ofirmev. Reevaluation #3: 12/13/17 06:51 CT Soft tissue neck: No subcutaneous abscess is present on examination Fatty density c/w possible lipoma anterior to the mandible Probable cellulitis of the lower mandible Patient was updated on all results, will admit for failed outpatient cellulitis of the chin and mandible. Reevaluation #4: 12/13/17 07:02 Case was discussed with Dr. Walls, will accept admission for failed outpatient cellulitis. Medical Decision Making - Lab Data Result diagrams: 12/13/17 05:58 12/13/17 05:58 Disposition Disposition: Admit Clinical Impression: Facial cellulitis Disposition: Still a Patient at [facility] Decision to Admit: Admit from ER Decision to Admit Date: 12/13/17 Decision to Admit Time: 06:52 Condition: (2) Stable Forms: Patient Portal Access Time of Disposition: 06:52 Quality - Quality Measures Quality Measures: N/A - Blood Pressure Screening Does Patient Have Any of the Following: No Blood Pressure Classification: Hypertensive Reading Systolic Measurement: 191 Diastolic Measurement: 122 Screening for High Blood Pressure: < First Hypertensive BP, F/U Documented > [ G8950] First Hypertensive Follow-up Interventions: Referral to alternative/primary care provider.
[2017-12-13 06:07] LABS: HEMATOCRIT 41.1 % (35.0-47.0); HEMOGLOBIN 13.2 gm/dl (11.6-16.0); MEAN CELL VOLUME 92.4 fl (81-97); MEAN CORPUSCULAR HEMOGLOBIN 29.7 pg (27-33); MEAN CORPUSCULAR HGB CONC 32.1 g/dl (32-36); MEAN PLATELET VOLUME 10.7 fl (7.4-10.4); PLATELET COUNT 249 K/uL (130-400); RED BLOOD COUNT 4.45 M/uL (3.80-5.40); WHITE BLOOD COUNT W/O DIFF 10.4 K/uL (4.2-12.2)
[2017-12-13 06:14] LABS: BLOOD UREA NITROGEN 8 mg/dL (6-20)
[2017-12-13 06:15] LABS: EST GLOMERULAR FILTRATION RATE > 60 mL/min; TOTAL PROTEIN 7.5 g/dL (6.6-8.7)
[2017-12-13 06:17] LABS: GLUCOSE,RANDOM 138 mg/dL (74-109)
[2017-12-13 06:20] LABS: ALB/GLOB RATIO 1.1 (1.1-1.8); ALKALINE PHOSPHATASE 86 U/L (35-104); ALT/SGPT 26 U/L (<33); AST/SGOT 26 U/L (10.0-35.0)
[2017-12-13 06:23] LABS: PLATELET ESTIMATE NORMAL (NORMAL)
[2017-12-13] MEDS ORDERED: 0.9 % SODIUM CHLORIDE 1000ML 1,000 ML IV PRN (07:25)
[2017-12-13] MEDS ORDERED: ACETAMINOPHEN 1,000 MG/100 ML BTL IVPB SCH ×2 (07:25→12:00)
[2017-12-13] MEDS ORDERED: HYDROCODONE/APAP 5/325MG TABLET PO ONE (08:52)
[2017-12-13] MEDS: LOSARTAN POTASSIUM 25 MG TABLET PO SCH (09:13)
[2017-12-13] MEDS ORDERED: BUSPIRONE 5 MG TABLET PO SCH (10:00)
[2017-12-13] MEDS ORDERED: BUSPIRONE 5 MG TABLET PO PRN (10:34)
[2017-12-13] MEDS: VORTIOXETINE HYDROBROMIDE 10 MG PO SCH (11:32)
[2017-12-13] MEDS ORDERED: IBUPROFEN 400 MG TABLET PO ONE (12:11)
--- NOTE | 2017-12-13 12:21 | CT SCAN REPORT ---
EXAM: EMERGENCY CT SCAN OF THE NECK WITHOUT AND WITH CONTRAST HISTORY: FACE INFECTION, FACIAL ABSCESS. TECHNIQUE: Axial CT scan of the neck was performed both prior to and after the intravenous administration of iodated contrast media. Please see the medical record for IV contrast specifics. A preliminary report was provided by [facility]. Comparison: No prior neck CT with which to compare. FINDINGS: No parotid or submandibular gland mass identified. No thyroid nodule is seen. No superior mediastinal adenopathy evident. The lung apices are clear with no pneumothorax evident. No definite soft tissue abscess identified within the neck. Normal size cervical nodes are present, but no definite cervical adenopathy identified. There is multilevel degenerative change in the cervical spine with narrowing particularly of the fifth and sixth cervical interspaces with associated hypertrophic spurring. Some loss of the normal cervical lordosis likely due to position or spasm, however, there is no prevertebral soft tissue swelling evident. The epiglottis is of normal size. IMPRESSION: 1. NO DEFINITE ABSCESS OR ADENOPATHY IDENTIFIED IN THE NECK. 2. MULTILEVEL DEGENERATIVE CHANGE IN THE CERVICAL SPINE. JOB NUMBER: [id number] [facility]
[2017-12-13] MEDS ORDERED: HYDROCODONE/APAP 5/325MG TABLET PO PRN (12:49)
[2017-12-13] MEDS: CLINDAMYCIN 600MG/50ML PREMIX 600 MG/50 ML BAG IVPB SCH ×2 (14:31→21:28)
--- NOTE | 2017-12-13 15:04 | History & Physical ---
History of Present Illness - Date of Service Date of Service for History & Physical: 12/13/17 - History of Present Illness Admitting Diagnosis: Cellulitis face-failed outpatient History of Present Illness: PMHx: Bipolar disorder, anxiety, glaucoma, HTN ED course: Pt presented to the ED with cellulitis of the chin after thinking it was a pimple and tried to pop it but no discharge was expelled. She was given bactrim PO and sent home. After 3 doses she came back in for worsening of her cellulitis in terms of pain, swelling, and spreading erythema. She was admitted for IV abx, given failed oupt therapy on bactrim. WBC's wnl. tachycardic and elevated BP. CMP wnl. Subjective today Pt denies any worsening of cellulitis this AM. Does complain of throbbing pain. Denies fever or chills. Travel Screening - Travel/Exposure Within Last 30 Days Have you traveled within the last 30 days?: No - Travel/Exposure Within Last Year Have you traveled outside the [place] in the last year?: No - Additonal Travel Details Have you been exposed to anyone with a communicable illness?: No - Travel Symptoms Symptom Screening: None Review of Systems Constitutional: Denies: Chills, Fever, Malaise, Night sweats Eyes: Denies: Eye discharge, Eye pain ENT: Reports: Other (facial swelling/pain). Denies: Congestion, Ear pain, Epistaxis Respiratory: Denies: Cough, Dyspnea Cardiovascular: Denies: Chest pain, Dyspnea on exertion, Murmurs, Palpitations Endocrine: Denies: Fatigue, Heat or cold intolerance Gastrointestinal: Denies: Abdominal pain, Constipation, Diarrhea, Nausea, Vomiting Genitourinary: Denies: Dysuria, Frequency, Incontinence, Retention, Urgency Musculoskeletal: Denies: Arthralgia, Back pain Skin: Reports: Change in color (erythema), Lesions. Denies: Bruising Neurological: Denies: Abnormal gait, Confusion, Headache, Seizure Psychiatric: Denies: Anxiety, Depression Hematological/Lymphatic: Denies: Anemia, Blood Clots Past Medical History - SOCIAL HISTORY Smoking Status: Never smoker Alcohol Use: None Drug Use: None - RESPIRATORY Hx Respiratory Disorders: No - CARDIOVASCULAR Hx Cardio Disorders: Yes Hx Hypertension: Yes - NEURO Hx Neuro Disorders: No - GI Hx GI Disorders: No - Hx Genitourinary Disorders: Yes Hx Kidney Stones: Yes Hx Renal Disease: Yes (Pt states that "i only haveone kidney") Hx UTI: Yes - ENDOCRINE Hx Endocrine Disorders: Yes Hx Thyroid Disease: Yes (Hypothyroid) - MUSCULOSKELETAL Hx Musculoskeletal Disorders: No - PSYCH Hx Psych Problems: Yes Hx Anxiety: Yes Hx Behavior Problems: Yes (Bipolar) Hx Depression: Yes - HEMATOLOGY/ONCOLOGY Hx Hematology/Oncology Disorders: No Family Medical History Any Significant Family History?: Yes Hx Anxiety: Mother Hx Cancer: Father Hx Dementia: Mother Hx Depression: Mother Hx Diabetes: Mother Hx Heart Disease: Mother Hx HTN: Mother Hx Resp Disorders: Father Hx Seizures: Father Hx Stroke: Mother H&P Meds/Allergies - Allergies Allergies: Allergies Allergy/AdvReac Type Severity Reaction Status Date / Time No Known Drug Allergies Allergy Verified 10/10/17 08:38 - Home Medications Previous Rx's Medication Instructions Recorded Acetaminophen [Tylenol 500Mg Tab] 500 mg PO Q6H PRN 12/21/16 Sulfamethoxazole/Trimethoprim 1 each PO BID #20 tablet 12/12/17 [Bactrim Ds Tablet] - Active Medications Active Medications: Current Medications Hydrocodone Bitart/Acetaminophen (Thida 5mg/325mg) 1 each PO Q6H PRN PRN Reason: PAIN - SEVERE (8-10) Last Admin: 12/13/17 14:46 Dose: 1 each Buspirone HCl (Buspar) 10 mg PO BID PRN PRN Reason: ANXIETY Clindamycin Phosphate (Cleocin 600 [id number]) 600 mg in 50 mls @ 100 mls/ hr IVPB Q8H BERNABE Last Admin: 12/13/17 14:31 Dose: 100 mls/hr Ibuprofen (Motrin 400mg) 800 mg PO Q8H PRN PRN Reason: PAIN - MILD TO MODERATE (1-7) Latanoprost (Xalatan) 1 drop OPTH QHS BERNABE Losartan Potassium (Cozaar) 50 mg PO DAILY BERNABE Last Admin: 12/13/17 09:13 Dose: 50 mg Non-Formulary Medication (Vortioxetine Hydrobromide [Trintellix]) 10 mg PO DAILY BERNABE Last Admin: 12/13/17 11:32 Dose: Not Given Physical Exam - Vital Signs Vital Signs: Vital Signs - Last 24 Hrs Temp Pulse Pulse Pulse Resp BP BP 12/13/17 08:01 16 12/13/17 07:20 98.2 F 123 H 20 178/92 12/13/17 06:56 109 H 20 156/84 12/13/17 05:43 99.0 F 138 H 20 191/122 Pulse Ox 12/13/17 08:01 12/13/17 07:20 96 12/13/17 06:56 95 12/13/17 05:43 96 - General General Appearance: Alert, Oriented x3, Cooperative, No acute distress Limitations: No limitations - Head Head exam: Atraumatic Head exam detail: Other (Mild erythema with central circular indurated lesion without pus to the anterior chin present, mild TTP. No warmth exhibited upon palpation. ). negative: Abrasion, Contusion, Blandon's sign, General tenderness , Hematoma, Laceration - Eye Eye exam: Normal appearance. negative: Conjunctival injection, Periorbital swelling, Periorbital tenderness, Scleral icterus - ENT Ear exam: negative: Auricular hematoma, Auricular trauma Nasal Exam: negative: Active bleeding, Discharge, Dried blood, Foreign body Mouth exam: negative: Drooling, Laceration, Muffled voice, Tongue elevation - Neck Neck exam: Normal inspection - Respiratory Respiratory exam: Normal lung sounds bilaterally. negative: Rales, Respiratory distress, Rhonchi, Stridor - Cardiovascular Cardiovascular Exam: Normal rhythm, Normal heart sounds, Tachycardia - GI/Abdominal GI/Abdominal exam: Soft. negative: Rebound, Rigid, Tenderness - Rectal Rectal exam: Deferred - exam: Deferred - Extremities Extremities exam: Normal inspection. negative: Calf tenderness, Pedal edema, Tenderness - Back Back exam: Denies: CVA tenderness (R), CVA tenderness (L) - Neurological Neurological exam: Alert, Normal gait, Oriented X3 - Psychiatric Psychiatric exam: Normal affect, Normal mood - Skin Skin exam: Erythema. negative: Abrasion Type of lesion: negative: Abscess Distribution of rash: Face Description of rash: Erythematous, Indurated, Swelling, Tenderness Results - Labs Result Diagrams: 12/13/17 05:58 12/13/17 05:58 Labs Last 24 Hours: Laboratory Results - last 24 hr 12/13/17 12/13/17 05:58 05:58 WBC 10.4 RBC 4.45 Hgb 13.2 Hct 41.1 MCV 92.4 MCH 29.7 MCHC 32.1 RDW 13.0 Plt Count 249 MPV 10.7 H Neutrophils % 82.0 H Band Neutrophils % 2.0 Eosinophils % Not Reportable Basophils % Not Reportable Lymphocytes 2.0 L Monocytes 12.0 H Platelet Estimate Normal RBC Morphology Normal Eosinophil Count 2.0 Sodium 143 Potassium 4.5 Chloride 102 Carbon Dioxide 23.0 Anion Gap 18.0 H BUN 8 Creatinine 1.0 H Estimated GFR > 60 Random Glucose 138 H Calcium 8.8 Total Bilirubin 0.30 AST 26 ALT 26 Alkaline Phosphatase 86 Total Protein 7.5 Albumin 4.0 Globulin 3.5 Albumin/Globulin Ratio 1.1 VTE H&P Assessment - Risk for VTE Risk for VTE: Yes Risk Level: Low (SCD's in bed) Risk Assessment Date: 12/13/17 Risk Assessment Time: 15:13 VTE Orders Placed or Will Be Placed: Yes Plan - Detailed Diagnosis and Plan (1) Facial cellulitis Current Visit: Yes Status: Acute Base Code: L03.211 - CELLULITIS OF FACE Priority: High Comment: - Failed bactrim PO - WBC's normal. - Clinda Q6 hours BERNABE - Ibuprofen for pain 1-7/10, norco for pain 8-10/10 PRN - Marked area, if worsening switch to vanco. (2) Tachycardia Current Visit: Yes Status: Acute Base Code: R00.0 - TACHYCARDIA, UNSPECIFIED Priority: High Comment: - Unclear etiology - Pt is not dehydrated. - Apparent on previous admissions as well. - Cardio c/s - Tele - EKG ordered and sinus tachycardia. - Asymptomatic at this time. - Consistently ranging 101-130. - Pt is not septic. BP elevated. - Disposition Home if continued improvement with clinda. Pending cardio recs.
[2017-12-13] MEDS: DILTIAZEM 180MG CR CAPSULE PO SCH (17:37)
[2017-12-13] MEDS: IBUPROFEN 400 MG TABLET PO PRN (20:08)
[2017-12-13] MEDS: LATANOPROST 0.005% OPTH SOLUTION 2.5ML BOTTLE OPTH SCH (21:28)
[2017-12-14] MEDS: IBUPROFEN 400 MG TABLET PO PRN ×3 (04:59→20:52)
[2017-12-14] MEDS: CLINDAMYCIN 600MG/50ML PREMIX 600 MG/50 ML BAG IVPB SCH ×3 (05:01→21:03)
[2017-12-14 07:00] LABS: BASO % 0.5 % (0-6); GRAN % 71.8 % (47-80); HEMOGLOBIN 11.9 gm/dl (11.6-16.0); LYMPH % 12.5 % (16-45); MEAN CELL VOLUME 95.1 fl (81-97); MEAN CORPUSCULAR HGB CONC 30.5 g/dl (32-36); MEAN PLATELET VOLUME 10.9 fl (7.4-10.4); MONO % 10.2 % (0-9); PLATELET COUNT 225 K/uL (130-400); RED CELL DISTRIBUTION WIDTH 13.3 % (11.5-14.5); WHITE BLOOD COUNT W/O DIFF 6.1 K/uL (4.2-12.2)
[2017-12-14 07:14] LABS: BLOOD UREA NITROGEN 9 mg/dL (6-20); CREATININE 0.9 mg/dL (0.5-0.9); EST GLOMERULAR FILTRATION RATE > 60 mL/min; GLUCOSE,RANDOM 163 mg/dL (74-109)
[2017-12-14] MEDS: LOSARTAN POTASSIUM 25 MG TABLET PO SCH (09:22)
[2017-12-14] MEDS: DILTIAZEM 180MG CR CAPSULE PO SCH (09:23)
[2017-12-14] MEDS: VORTIOXETINE HYDROBROMIDE 10 MG PO SCH (09:24)
--- NOTE | 2017-12-14 17:43 | Medical Records Consult ---
DATE: 12/13/2017 CONSULTING: CASEY LEUNG HISTORY OF PRESENT ILLNESS: This is a very pleasant 52-year-old female with past medical history of hypertension and glaucoma. She presented to [facility] for treatment of facial cellulitis. She had been evaluated as an outpatient and failed p.o. antibiotics. She is now admitted and receiving Clindamycin 600 mg every 8 hours. Cardiology has been consulted for evaluation of hypertension and persistent tachycardia. Since admission, she was noted have heart rates ranging from 80 to 130 beats per minute. Her blood pressure has also been significantly elevated at 191/122 mmHg at its highest. Most recent blood pressure was noted to be 170/92 mmHg. Patient states that she saw a radio repairer about one year ago in [place] for her tachycardia. She had a 30-day event monitor at that time as well as an echocardiogram. She states that no significant arrhythmias were identified and she is unsure of the results of the echocardiogram. When she is having her episodes of tachycardia, she does note she has associated shortness of breath. She denies associated chest pain, lightheadedness, dizziness, and syncope. She is a sedentary individual and denies regular exercise. She denies tobacco use history. She denies a history of coronary artery disease, hyperlipidemia, diabetes mellitus, TIA and CVA, DVT and PE, and arrhythmia. Today, she is feeling well since she has been admitted. She is complaining of some nausea but is overall feeling better than yesterday. ALLERGIES: SHE HAS NO KNOWN DRUG ALLERGIES. MEDICATIONS: She is taking; Losartan 50 mg daily Clindamycin 600 mg every 8 hours BuSpar 10 mg p.o. b.i.d. [place] 5 mg every 325 mg every 6 hours Ibuprofen 800 mg every 8 hours as needed for pain Xalatan Eye Drops Trentellix 10 mg p.o. daily PAST MEDICAL HISTORY: Hypertension and glaucoma. SOCIAL HISTORY: She denies tobacco use. She denies significant alcohol use. She denies illicit drug use. FAMILY HISTORY: She has no significant family history of coronary artery disease. REVIEW OF SYSTEMS: CONSTITUTIONAL; Denies fevers, chills, sweats, lightheadedness, dizziness, and syncope. EYE; no recent visual problems. EARS, NOSE, MOUTH, AND THROAT; no ear pain, nasal congestion, sore throat. RESPIRATORY ; no shortness of breath, cough. CARDIOVASCULAR; palpitations. Denies chest pain , shortness of breath, PND, orthopnea, syncope. PERIPHERAL VASCULAR; denies peripheral edema, claudication, gastrointestinal. She is complaining of some nausea. Denies vomiting, diarrhea. MUSCULOSKELETAL; denies back pain, neck pain , joint pain, muscle pain, decreased range of motion. INTEGUMENTARY; denies rash , itching. Positive for facial cellulitis. NEUROLOGIC; alert and oriented x4. PSYCHIATRIC; denies anxiety and depression. PHYSICAL EXAM: VITAL SIGNS: Her temperature is 99 degrees Fahrenheit. Heart rate 89 beats per minutes. Blood pressure 191/122 mmHg. Respiratory rate 20. Pulse ox 96%. Her BMI is 38.2. GENERAL: Alert and oriented, well-nourished, in no acute distress. HEAD: Normocephalic, atraumatic. ENT: EOMI. PERRL. No scleral icterus, erythema. NECK: Supple, nontender, no carotid bruits, no JVD. RESPIRATORY: Clear to auscultation, nonlabored respiration. No wheezing, rhonchi , rales. PERIPHERAL VASCULAR: No peripheral edema. No cyanosis, clubbing, peripheral pulses 2+ and symmetric. ABDOMEN: Obese, soft, nontender, nondistended, normal bowel sounds. SKIN: Facial cellulitis of the lower lip. MUSCULOSKELETAL: Normal range of motion of all four extremities. Normal gait. NEUROLOGIC: Awake, alert, and oriented x3. PSYCHIATRIC: Cooperative, apparent appropriate mood and affect. LABS: Her hemoglobin is 13.2, hematocrit 41.1, white blood cell 10.4, platelets 249. Sodium 143, potassium 4.5, chloride 102, CO2 is 23, BUN 8, creatinine 1, glucose 138. TESTING: EKG demonstrates sinus tachycardia with a rate of 101 beats per minute. ASSESSMENT: 1. TACHYCARDIA. 2. HYPERTENSION. PLAN: The patient is a 52-year-old female who is currently admitted to [facility] for treatment of facial cellulitis with IV antibiotics. While admitted, she was noted to have persistent tachycardia with a heart rate ranging from 80 to 130 beats per minute. Her blood pressures also have been significantly elevated with the highest noted to be 191/122 mmHg. Her most recent blood pressure is currently 178/92 mmHg. She is on Losartan 50 mg daily, which she takes at home. EKG on admission was reviewed and demonstrates sinus tachycardia with a rate of 101 beats per minute. Telemetry currently demonstrates normal sinus rhythm with heart rate of 88 beats per minute. We will obtain echocardiogram and 30-day event monitor results from [facility]. At this time, we will add Cardizem CD 180 mg daily for treatment of hypertension and tachycardia. We discussed diet, exercise, and weight loss in detail. We will plan to follow up with her as an outpatient in 4-6 weeks. cc: Carolyn Finn M.D. JOB NUMBER: [id number] MTDD
[2017-12-14] MEDS ORDERED: TMP/SMZ 160MG/800MG TAB PO ONE (18:26)
[2017-12-14] MEDS ORDERED: TRAMADOL HCL 50 MG TABLET PO ONE (19:04)
[2017-12-14] MEDS ORDERED: TRAMADOL HCL 50 MG TABLET PO PRN (19:06)
[2017-12-14] MEDS: LATANOPROST 0.005% OPTH SOLUTION 2.5ML BOTTLE OPTH SCH (21:03)
[2017-12-15] MEDS: IBUPROFEN 400 MG TABLET PO PRN (06:08)
[2017-12-15] MEDS: CLINDAMYCIN 600MG/50ML PREMIX 600 MG/50 ML BAG IVPB SCH (06:11)
[2017-12-15] MEDS ORDERED: LIDOCAINE UROJECT 10 ML APPL MM PRN (08:23)
[2017-12-15] MEDS: TMP/SMZ 160MG/800MG TAB PO SCH ×2 (09:25→09:50)
[2017-12-15] MEDS: LOSARTAN POTASSIUM 25 MG TABLET PO SCH (09:25)
[2017-12-15] MEDS: VORTIOXETINE HYDROBROMIDE 10 MG PO SCH (09:25)
[2017-12-15] MEDS: DILTIAZEM 180MG CR CAPSULE PO SCH (09:25)
--- NOTE | 2017-12-15 13:00 | Discharge Note ---
VTE H&P Assessment - Risk for VTE Risk for VTE: Yes Risk Level: Low (SCD's in bed) Risk Assessment Date: 12/13/17 Risk Assessment Time: 15:13 VTE Orders Placed or Will Be Placed: Yes Discharge Medications - Discharge Medications Prescriptions: Clindamycin HCl 300 mg PO Q6HR #40 capsule Sulfamethoxazole/Trimethoprim [Bactrim Ds Tablet] 1 each PO BID #20 tablet Home Medications: Ambulatory Orders Buspirone HCl 10 mg PO DAILY 03/09/15 [Last Taken 03/09/15] Losartan Potassium 50 mg PO DAILY 03/09/15 [Last Taken 03/09/15] Latanoprost 0.005% Opth Marika [Xalatan] 1 drop AFFEYE BID 12/20/16 [Last Taken Unknown] Acetaminophen [Tylenol 500Mg Tab] 500 mg PO Q6H PRN 12/21/16 [Last Taken Unknown ] Vortioxetine Hydrobromide [Trintellix] 10 mg PO DAILY 12/12/17 [Last Taken Unknown] Clindamycin HCl 300 mg PO Q6HR #40 capsule 12/15/17 [Last Taken Unknown] Sulfamethoxazole/Trimethoprim [Bactrim Ds Tablet] 1 each PO BID #20 tablet 12/15 [Last Taken Unknown] Discharge Note - Date Date of Discharge Note: 12/15/17 Disposition: Home, Self-Care Condition: (2) Stable Additional Instructions: Follow up with Carla Flores as scheduled December 23 at 1:30 warm compresses 6 times a day for 10 minutes Forms: Patient Portal Access
--- NOTE | 2017-12-15 18:10 | Discharge Summary ---
DATE: 12/15/2017 It is an observation patient. DISCHARGE DIAGNOSIS: Abscess/cellulitis of the face and chin. ATTENDING PHYSICIAN: Woody Dillon DO REASON FOR HOSPITALIZATION: Patient failed outpatient antibiotics. Was treated in the emergency department. The patient returned with the cellulitis getting worse. She is admitted to the hospital. She stated that there was a pimple on her chin, she popped it and it got worse. She was initially sent home on Bactrim twice a day. She had 3 doses. It got much worse. She failed outpatient therapy and was admitted for IV antibiotics. She was started on IV clindamycin and restarted the Bactrim twice a day. The patient gradually improved over the last 48 hours. At this point I feel it is safe to go home for outpatient antibiotics. SIGNIFICANT FINDINGS: WBC 6100, hemoglobin 11.9, segs not reported on this one but on the previous one WBC was 10,400, segs 82, bands 2, lymphs 2, monocytes 12. Potassium 4.3, sodium 141, chloride 102, BUN 9, creatinine 0.9. Cultures are pending on the wound after the I&D done on 12/14/2017, a small amount of purulent material obtained. THERAPY PROVIDED: I&D of the chin and face with 11 blade. Purulent material obtained and wound culture sent for an aerobic culture. IV clindamycin and oral Bactrim. HOSPITAL COURSE: Gradually improved. CONDITION ON DISCHARGE: Improved. DISCHARGE INSTRUCTIONS: Follow up with family doctor as scheduled next week. She has an appointment 12/23/2017, at 1:30. If worse, call the doctor and get in sooner. The doctor is Sandra. Warm compress to the face 6 times a day for 10 minutes to obtain more drainage from the I&D site. We will discharge her with clindamycin 300 mg 4 times a day for 10 days, Bactrim double strength 1 b.i.d. for 10 days. Continue her home medications of buspirone, losartan, Xalatan drops, Tylenol, Trintellix. MTDD
== END 2017-12-15 14:20 | disposition home or self-care (01) ==
LOC: ER 05:40 → MEDSURG 07:14
PROVIDERS: ADMIT Internal Medicine; ATTEND Internal Medicine
DX: L03.211 Cellulitis of face (principal); R00.0 Tachycardia, unspecified; I10 Essential (primary) hypertension; E03.9 Hypothyroidism, unspecified; F31.9 Bipolar disorder, unspecified; Z87.442 Personal history of urinary calculi; Z90.5 Acquired absence of kidney
CPT/HCPCS: 70491; 80048; 80053; 85027; 93005; 96374; 96375; 99220; 99239; 99285; J7030